=== PATIENT | female | born 1940 | race Caucasian/White ===

== ENCOUNTER 2018-05-13 15:55 | Observation (INO) | payer MEDICARE, OTHER ==
--- NOTE | 2018-05-13 16:42 | EDM.PDOC ---
ED HPI GENERAL MEDICAL PROBLEM - General Chief Complaint: Abdominal Pain Stated Complaint: abdominal pain Time Seen by Provider: 05/13/18 16:30 Source of Information: Reports: Patient History Limitations: Reports: No Limitations - History of Present Illness INITIAL COMMENTS - FREE TEXT/NARRATIVE: Stated during the night with sharp midepigastric pain that would radiate up into her chest. Now has pain across most of her abdomen and then it radiates into the middle of her abdomen. SHe ate chicken sandwich last evening but had no symptoms until during the night. She ate banana this morning and it caused increase in discomfort so she made herself vomit it up. No diarrhea but she did have normal BM earlier today. She denied any fever or chills. Pain is in lower abdomen and then shoots into midepigastric and midsternal. It will come and go. Pain had become much worse this afternoon. Onset: Gradual Duration: Day(s): (1) Location: Reports: Abdomen Quality: Reports: Sharp Abdomen Pain Score (Numeric/FACES): 8 - Related Data Allergies Allergy/AdvReac Type Severity Reaction Status Date / Time regadenoson [From Lexiscan] Allergy Severe Cardiac Verified 05/13/18 16:10 Arrest Home Meds: Home Meds Calcium Carbonate/Vitamin D3 [Calcium 600 + Vit D 400 Tablet] 1 tab PO DAILY [History] Citalopram Hydrobromide [Celexa] 10 mg PO DAILY 11/20/15 [History] Enalapril/Hydrochlorothiazide [Enalapril-HCTZ 10-25 MG] 1 tab PO DAILY 11/20/15 [History] Hydrocodone/Acetaminophen [Hydrocodon-Acetaminophen 5-325] 1 tab PO Q6H PRN [History] Meloxicam 15 mg PO DAILY 11/20/15 [History] Omeprazole 20 mg PO DAILY 11/20/15 [History] Simvastatin [Zocor] 20 mg PO DAILY 11/20/15 [History] traZODone HCl [Trazodone HCl] 25 mg PO BEDTIME 11/20/15 [History] Past Medical History HEENT History: Reports: Impaired Vision Cardiovascular History: Reports: High Cholesterol, Hypertension Gastrointestinal History: Reports: GERD 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: - Past Surgical History Female Surgical History: Reports: Section, Hysterectomy Oncologic Surgical History: Reports: Lumpectomy Social & Family History - Family History Family Medical History: Noncontributory - Tobacco Use Smoking Status *Q: Never Smoker - Caffeine Use Caffeine Use: Reports: Coffee - Recreational Drug Use Recreational Drug Use: No ED ROS GENERAL - Review of Systems Review Of Systems: See Below Constitutional: Denies: Fever, Chills Respiratory: Reports: No Symptoms Cardiovascular: Reports: No Symptoms Endocrine: Reports: No Symptoms GI/Abdominal: Reports: Abdominal Pain, Decreased Appetite, Vomiting. Denies: Constipation, Diarrhea : Reports: No Symptoms Musculoskeletal: Reports: No Symptoms Skin: Reports: No Symptoms Neurological: Reports: No Symptoms Psychiatric: Reports: No Symptoms ED EXAM, GI/ABD - Physical Exam Exam: See Below Exam Limited By: No Limitations General Appearance: Alert, WD/WN, Moderate Distress Ears: Normal External Exam, Normal Canal Nose: Normal Inspection, Normal Mucosa Throat/Mouth: Normal Inspection, Normal Oropharynx, No Airway Compromise Head: Atraumatic, Normocephalic Neck: Normal Inspection, Supple Respiratory/Chest: No Respiratory Distress, Lungs Clear, Normal Breath Sounds Cardiovascular: Regular Rate, Rhythm, No Edema GI/Abdominal Exam: Tender (Tender to palpation to lower abdomen which will radiate to midepigastric area then up into midsternal area.), Abnormal Bowel Sounds (Bowel sounds are present but hypoactive.). No: Guarding, Rigid, Rebound Extremities: Normal Inspection, No Pedal Edema, Normal Capillary Refill Neurological: Alert, Oriented Skin Exam: Warm, Dry, Intact Course - Vital Signs Last Recorded V/S: Last Vital Signs Temp 98.8 F 05/13/18 16:13 Pulse 75 05/13/18 16:13 Resp 20 05/13/18 16:13 BP 155/87 H 05/13/18 16:25 Pulse Ox 98 05/13/18 16:13 - Orders/Labs/Meds Orders: Active Orders 24 hr Category Date Time Status Abdomen Pelvis w Cont [CT] Stat Exams 05/13/18 16:37 Taken Labs: Laboratory Tests 05/13/18 05/13/18 05/13/18 Range/Units 16:25 16:25 16:25 WBC 10.2 H (5.0-10.0) 10^3/uL RBC 4.77 (4.00-5.50) 10^6/uL Hgb 14.9 (12.0-16.0) g/dL Hct 43.9 (37.0-47.0) % MCV 92.0 (82.0-94.0) fL MCH 31.2 (27.0-32.0) pg MCHC 33.9 (33.0-38.0) g/dL RDW Coeff of Ashley 13.9 (11.0-15.0) % Plt Count 341 (150-400) 10^3/uL Neut % (Auto) 76.0 (35-85) % Lymph % (Auto) 16.8 (10-55) % [place] % (Auto) 5.6 (0-16) % Eos % (Auto) 1.2 (0-5) % Baso % (Auto) 0.4 (0-3) % Neut # (Auto) 7.72 H (1.80-7.00) 10^3/uL Lymph # (Auto) 1.71 (1.00-4.80) 10^3/uL [place] # (Auto) 0.57 (0.00-0.80) 10^3/uL Eos # (Auto) 0.12 (0.00-0.45) 10^3/uL Baso # (Auto) 0.04 10^3/uL Sodium 143 (136-145) mEq/L Potassium 4.0 (3.5-5.0) mEq/L Chloride 104 (98-106) mEq/L Carbon Dioxide 28 (21-32) mmol/L BUN 21 H (7-18) mg/dL Creatinine 1.2 H (0.6-1.0) mg/dL Est Cr Clr Drug Dosing 29.63 mL/min Estimated GFR (MDRD) 44 L (>=60) mL/min Glucose 112 H (75-99) mg/dL Calcium 9.5 (8.4-10.1) mg/dL Total Bilirubin 0.8 (0.0-1.0) mg/dL AST 35 (15-37) U/L ALT 35 (12-78) U/L Alkaline Phosphatase 77 (46-116) U/L Lactate Dehydrogenase (100-190) U/L Creatine Kinase (21-215) U/L Troponin I (0.00-0.06) ng/mL C-Reactive Protein 0.5 (0.2-0.8) mg/dL Total Protein 7.4 (6.4-8.2) g/dL Albumin 3.9 (3.4-5.0) g/dL Amylase 34 (25-115) U/L Urine Color Light yellow (YELLOW) Urine Appearance Clear (CLEAR) Urine pH 7.0 (4.5-8.0) Ur Specific [place] 1.010 (1.003-1.020) Urine Protein Negative (NEGATIVE) mg/dL Urine Glucose (UA) Negative (NEGATIVE) mg/dL Urine Ketones Negative (NEGATIVE) mg/dL Urine Occult Blood Negative (NEGATIVE) Urine Nitrite Negative (NEGATIVE) Urine Bilirubin Negative (NEGATIVE) Urine Urobilinogen 0.2 (0.2-1.0) EU/dL Ur Leukocyte Esterase Negative (NEGATIVE) Urine RBC Not seen (0-5) /HPF Urine WBC 0-5 (0-5) /HPF Ur Squamous Epith Cells Occasional H (NOT SEEN) /HPF 05/13/18 Range/Units 16:37 WBC (5.0-10.0) 10^3/uL RBC (4.00-5.50) 10^6/uL Hgb (12.0-16.0) g/dL Hct (37.0-47.0) % MCV (82.0-94.0) fL MCH (27.0-32.0) pg MCHC (33.0-38.0) g/dL RDW Coeff of Ashley (11.0-15.0) % Plt Count (150-400) 10^3/uL Neut % (Auto) (35-85) % Lymph % (Auto) (10-55) % [place] % (Auto) (0-16) % Eos % (Auto) (0-5) % Baso % (Auto) (0-3) % Neut # (Auto) (1.80-7.00) 10^3/uL Lymph # (Auto) (1.00-4.80) 10^3/uL [place] # (Auto) (0.00-0.80) 10^3/uL Eos # (Auto) (0.00-0.45) 10^3/uL Baso # (Auto) 10^3/uL Sodium (136-145) mEq/L Potassium (3.5-5.0) mEq/L Chloride (98-106) mEq/L Carbon Dioxide (21-32) mmol/L BUN (7-18) mg/dL Creatinine (0.6-1.0) mg/dL Est Cr Clr Drug Dosing mL/min Estimated GFR (MDRD) (>=60) mL/min Glucose (75-99) mg/dL Calcium (8.4-10.1) mg/dL Total Bilirubin (0.0-1.0) mg/dL AST (15-37) U/L ALT (12-78) U/L Alkaline Phosphatase (46-116) U/L Lactate Dehydrogenase 226 H (100-190) U/L Creatine Kinase 84 (21-215) U/L Troponin I < 0.017 (0.00-0.06) ng/mL C-Reactive Protein (0.2-0.8) mg/dL Total Protein (6.4-8.2) g/dL Albumin (3.4-5.0) g/dL Amylase (25-115) U/L Urine Color (YELLOW) Urine Appearance (CLEAR) Urine pH (4.5-8.0) Ur Specific [place] (1.003-1.020) Urine Protein (NEGATIVE) mg/dL Urine Glucose (UA) (NEGATIVE) mg/dL Urine Ketones (NEGATIVE) mg/dL Urine Occult Blood (NEGATIVE) Urine Nitrite (NEGATIVE) Urine Bilirubin (NEGATIVE) Urine Urobilinogen (0.2-1.0) EU/dL Ur Leukocyte Esterase (NEGATIVE) Urine RBC (0-5) /HPF Urine WBC (0-5) /HPF Ur Squamous Epith Cells (NOT SEEN) /HPF Meds: Medications Discontinued Medications Generic Name Dose Route Start Last Admin Trade Name Freq PRN Reason Stop Dose Admin Iopamidol 100 ml 05/13/18 16:47 05/13/18 17:14 Isovue-300 (61%) IVPUSH 05/13/18 16:48 100 ml ONETIME ONE Administration - Re-Assessments/Exams Free Text/Narrative Re-Assessment/Exam: 05/13/18 18:[address] report with Radiologist via phone and then report given to pt. She has some distal small bowel dilation with possible early ileus and possible early obstruction and enteritis. Discussed that she will be admitted with IV fluids and NPO to rest bowel. If she begins to vomit then will need to place NG tube. Pt and daughter in law voice understanding. Departure - Departure Time of Disposition: 18:30 Disposition: Refer to Observation Condition: Fair Clinical Impression: Ileus, unspecified - Discharge Information *PRESCRIPTION DRUG MONITORING PROGRAM REVIEWED*: Not Applicable *COPY OF PRESCRIPTION DRUG MONITORING REPORT IN PATIENT JOSE ALBERTO: Not Applicable Instructions: Ileus Forms: ED Department Discharge - Problem List & Annotations (1) Ileus, unspecified SNOMED Code(s): 40554040 Code(s): K56.7 - ILEUS, UNSPECIFIED Status: Acute Priority: High Current Visit: Yes - Problem List Review Problem List Initiated/Reviewed/Updated: Yes - My Orders Last 24 Hours: My Active Orders 05/13/18 16:37 Abdomen Pelvis w Cont [CT] Stat - Assessment/Plan Admission H&P: Please use this note as an admission H&P Last 24 Hours: My Active Orders 05/13/18 16:37 Abdomen Pelvis w Cont [CT] Stat Plan: Will admit with IV hydration and NPO for bowel rest. If pain subsides and she has no vomiting or diarrhea then may be discharged in 1-2 days. If she starts to vomit then would need NG tube.
[2018-05-13] MEDS ORDERED: Iopamidol 612 MG/ML 100 ML Bottle IVPUSH ONE (16:47)
[2018-05-13] MEDS ORDERED: Ondansetron 4 MG/2 ML SDV IV PRN (19:05)
[2018-05-13] MEDS ORDERED: Enoxaparin 30 MG/0.3 ML Syringe SUBCUT SCH (19:05)
[2018-05-13] MEDS ORDERED: HYDROmorphone 1 MG/ML Syringe IVPUSH PRN (19:05)
[2018-05-13] MEDS ORDERED: traZODone 50 MG Tab PO SCH (20:00)
[2018-05-13] MEDS: Sodium Chloride 0.9% 1,000 ML IV SCH (20:10)
[2018-05-13] MEDS: Pantoprazole 40 MG Vial IVPUSH SCH (20:13)
[2018-05-13] MEDS ORDERED: Temazepam 15 MG Cap PO PRN (23:45)
[2018-05-14] MEDS: Sodium Chloride 0.9% 1,000 ML IV SCH ×2 (04:15→11:58)
[2018-05-14] MEDS: Pantoprazole 40 MG Vial IVPUSH SCH (07:38)
[2018-05-14] MEDS ORDERED: Enalapril 5 MG Tab PO SCH (08:00)
[2018-05-14] MEDS ORDERED: [UNRECOGNIZED DRUG - OTHER] PO SCH (08:00)
[2018-05-14] MEDS ORDERED: Hydrochlorothiazide 25 MG Tab PO SCH (08:00)
[2018-05-14] MEDS ORDERED: HYDROCHLOROTHIAZIDE PO SCH ×2 (08:00)
[2018-05-14] MEDS ORDERED: CITALOPRAM 10 MG PO SCH (08:00)
[2018-05-14] MEDS ORDERED: ENALAPRIL PO SCH ×2 (08:00)
[2018-05-14 12:22] VITALS: BP 174/65
[2018-05-14] MEDS ORDERED: Acetaminophen 325 MG Tab PO PRN (12:25)
--- NOTE | 2018-05-14 22:24 | PCM.DCSUM1 ---
Discharge Summary - Hospital Course Free Text/Narrative:: Patient presented to ER with complaints of sharp midepigastric pain that radiated up in to her chest. Has a history of "bowel troubles" and known history of small bowel obstruction. She had felt that the discomfort came from eating a chicken sandwich the night prior. She had a banana yesterday am and vomited as a result. States "made myself vomit though". She denied any diarrhea. Had a BM yesterday. No fever or chills. No noted blood in stools as of late. Was worried as pain seemed to progress. Had labs in ER which were essentially negative. CT scan of the abdomen indicates possible enteritis, ileus with possible early small bowel obstruction. Admitted for IV fluids. Remains NPO. Diagnosis: Stroke: No Modified [place] Scale: No Symptoms at All Modified Last Scale Score: 0 - Discharge Data Discharge Date: 05/14/18 Discharge Disposition: Home, Self-Care 01 Condition: Good - Patient Summary/Data Complications: none Hospital Course: Patient feeling better this am. She is passing flatus. Abdomen sore but less pain. WBC is normal. BMP normal. CRP negative. Abdomen is soft, tender to lower quadrants. BS active. Did advance diet to clear liquids this am. Encouraged ambulation. Had 2 small bowel movements. Advanced to soft diet for lunch and did tolerate well. No nausea/vomiting or increased pain. Will discharge home on bland diet. - Patient Instructions Diet: GI Soft/Low Residue/Low Fiber Activity: As Tolerated - Discharge Plan *PRESCRIPTION DRUG MONITORING PROGRAM REVIEWED*: Not Applicable *COPY OF PRESCRIPTION DRUG MONITORING REPORT IN PATIENT JOSE ALBERTO: Not Applicable Home Medications: Home Meds Calcium Carbonate/Vitamin D3 [Calcium 600-Vit D3 400 Tablet] 1 tab PO DAILY [History] Citalopram Hydrobromide [Celexa] 10 mg PO DAILY 11/20/15 [History] Enalapril/Hydrochlorothiazide [Enalapril-HCTZ 10-25 MG] 1 tab PO DAILY 11/20/15 [History] Hydrocodone/Acetaminophen [Hydrocodon-Acetaminophen 5-325] 1 tab PO Q6H PRN [History] Meloxicam 15 mg PO DAILY 11/20/15 [History] Omeprazole 20 mg PO DAILY 11/20/15 [History] Simvastatin [Zocor] 20 mg PO DAILY 11/20/15 [History] traZODone HCl [Trazodone HCl] 25 mg PO BEDTIME 11/20/15 [History] Oxygen Therapy Mode: Nasal Cannula Patient Handouts: Ileus Forms: ED Department Discharge Referrals: Dylan Morrison MD [Primary Care Provider] - (Follow up with Dr. Morrison in one week) - Discharge Summary/Plan Comment DC Time >30 min.: No Discharge Summary/Plan Comment: Discharge home on bland diet - General Info Date of Service: 05/14/18 Admission Dx/Problem (Free Text: Ileus Functional Status: Reports: Pain Controlled, Tolerating Diet, Ambulating, Urinating - Review of Systems General: Denies: Fever, Weakness, Fatigue HEENT: Reports: No Symptoms Pulmonary: Denies: Shortness of Breath, Cough Cardiovascular: Denies: Chest Pain, Edema, Lightheadedness Gastrointestinal: Reports: Abdominal Pain (abdomen is "sore"). Denies: Nausea, Vomiting Genitourinary: Reports: No Symptoms Musculoskeletal: Reports: No Symptoms Skin: Reports: No Symptoms Neurological: Reports: No Symptoms Psychiatric: Reports: No Symptoms - Patient Data Vitals - Most Recent: Last Vital Signs Temp 99.7 F 05/14/18 12:00 Pulse 76 05/14/18 12:00 Resp 16 05/14/18 12:00 BP 174/65 H 05/14/18 12:00 Pulse Ox 96 05/14/18 12:00 Weight - Most Recent: 133 lb 8 oz I&O - Last 24 hours: Intake & Output 05/14/18 05/14/18 05/14/18 06:59 14:59 22:59 Intake Total 1000 1505 Output Total 200 300 Balance 800 1205 Lab Results - Last 24 hrs: Laboratory Results - last 24 hr 05/14/18 05/14/18 Range/Units 07:15 07:15 WBC 6.5 (5.0-10.0) 10^3/uL RBC 4.01 (4.00-5.50) 10^6/uL Hgb 12.5 (12.0-16.0) g/dL Hct 37.7 (37.0-47.0) % MCV 94.0 (82.0-94.0) fL MCH 31.2 (27.0-32.0) pg MCHC 33.2 (33.0-38.0) g/dL RDW Coeff of Ashley 13.9 (11.0-15.0) % Plt Count 266 (150-400) 10^3/uL Neut % (Auto) 61.7 (35-85) % Lymph % (Auto) 25.8 (10-55) % [place] % (Auto) 8.1 (0-16) % Eos % (Auto) 3.8 (0-5) % Baso % (Auto) 0.6 (0-3) % Neut # (Auto) 4.03 (1.80-7.00) 10^3/uL Lymph # (Auto) 1.69 (1.00-4.80) 10^3/uL [place] # (Auto) 0.53 (0.00-0.80) 10^3/uL Eos # (Auto) 0.25 (0.00-0.45) 10^3/uL Baso # (Auto) 0.04 10^3/uL Sodium 144 (136-145) mEq/L Potassium 4.0 (3.5-5.0) mEq/L Chloride 108 H (98-106) mEq/L Carbon Dioxide 28 (21-32) mmol/L BUN 17 (7-18) mg/dL Creatinine 1.2 H (0.6-1.0) mg/dL Est Cr Clr Drug Dosing 28.20 mL/min Estimated GFR (MDRD) 44 L (>=60) mL/min Glucose 99 (75-99) mg/dL Calcium 8.4 (8.4-10.1) mg/dL C-Reactive Protein 0.8 (0.2-0.8) mg/dL Med Orders - Current: Current Medications Discontinued Medications Acetaminophen (Tylenol) 650 mg PO Q4H PRN PRN Reason: Pain/Fever Last Admin: 05/14/18 12:48 Dose: 650 mg Citalopram Hydrobromide (Celexa) 10 mg PO DAILY [facility] Last Admin: 05/14/18 08:35 Dose: 10 mg Enalapril Maleate (Vasotec) 10 mg PO DAILY [facility] Last Admin: 05/14/18 09:15 Dose: Not Given Enoxaparin Sodium (Lovenox) 30 mg SUBCUT Q24H [facility] Last Admin: 05/13/18 20:19 Dose: 30 mg Hydrochlorothiazide (Hydrochlorothiazide) 25 mg PO DAILY [facility] Last Admin: 05/14/18 09:14 Dose: Not Given Hydromorphone HCl (Dilaudid) 0.25 mg IVPUSH Q2H PRN PRN Reason: Pain (severe 7-10) Sodium Chloride (Normal Saline) 1,000 mls @ 125 mls/hr IV ASDIRECTED [facility] Last Admin: 05/14/18 11:58 Dose: 125 mls/hr Iopamidol (Isovue-300 (61%)) 100 ml IVPUSH ONETIME ONE Stop: 05/13/18 16:48 Last Admin: 05/13/18 17:14 Dose: 100 ml Non-Formulary Medication (Enalapril/Hydrochlorothiazide [Enalapril-Hctz 10-25 Mg ]) 1 tab PO DAILY [facility] Enalapril/Hctz 10/25 (Mg) 1 tab PO DAILY [facility] Last Admin: 05/14/18 08:35 Dose: 1 tab Ondansetron HCl (Zofran) 4 mg IV Q4H PRN PRN Reason: Nausea/Vomiting Pantoprazole Sodium (Protonix Iv) 40 mg IVPUSH Q12H [facility] Last Admin: 05/14/18 07:38 Dose: 40 mg Temazepam (Restoril) 15 mg PO BEDTIME PRN PRN Reason: Sleep Last Admin: 05/13/18 23:53 Dose: 15 mg Trazodone HCl (Trazodone) 25 mg PO BEDTIME [facility] Last Admin: 05/13/18 20:20 Dose: Not Given - Exam General: Reports: Alert, Oriented HEENT: Reports: Mucous Membr. Moist/[place] Neck: Reports: Supple Lungs: Reports: Clear to Auscultation, Normal Respiratory Effort Cardiovascular: Reports: Regular Rate, Regular Rhythm GI/Abdominal Exam: Normal Bowel Sounds, Soft, Tender. No: Guarding Extremities: Normal Inspection, No Pedal Edema Skin: Reports: Warm, Dry Neurological: Reports: No New Focal Deficit
== END 2018-05-14 14:57 | disposition home or self-care (01) ==
LOC: CC.ED 15:55 → CC.MS 18:32 → UNDOADMOB 18:50
PROVIDERS: ADMIT Physician Assistant Medical; ATTEND Family Medicine
DX: K56.7 Ileus, unspecified (principal); K21.9 Gastro-esophageal reflux disease without esophagitis; E78.00 Pure hypercholesterolemia, unspecified; I10 Essential (primary) hypertension; Z79.899 Other long term (current) drug therapy; Z88.8 Allergy status to other drugs, medicaments and biological substances
CPT/HCPCS: 36415; 74177; 80048; 80053; 81001; 82150; 82550; 83615; 84484; 85025; 86140; 93005; 93010; 96361; 96372; 96374; 96376; 99217; 99219; 99285; A9270; C9113; G0378; J1650; J7030; Q9967

== ENCOUNTER 2019-10-30 08:57 | Emergency (ER) | payer MEDICARE, OTHER ==
[2019-10-30 09:01] VITALS: BP 153/70; PULSE 88
--- NOTE | 2019-10-30 09:32 | EDM.PDOC ---
ED HPI GENERAL MEDICAL PROBLEM - General Chief Complaint: General Stated Complaint: pain to L) groin Time Seen by Provider: 10/30/19 09:24 Source of Information: Reports: Patient History Limitations: Reports: No Limitations - History of Present Illness INITIAL COMMENTS - FREE TEXT/NARRATIVE: This patient is a 79 year old female that presents to the ER. Patient reports that she had stent placed in her left groin region on November 20. She reports that started last evening she noticed having a small about marble size nodule that is tender to the left groin. Patient reports she thinks it has been there since her surgery. Denies redness, heat, drainage, open wound, fever, vomiting. 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 Left Groin Pain Score (Numeric/FACES): 2 - Related Data Allergies Allergy/AdvReac Type Severity Reaction Status Date / Time regadenoson [From Lexiscan] Allergy Severe Cardiac Verified 10/30/19 09:01 Arrest levofloxacin Allergy Pain Verified 10/30/19 09:02 Home Meds: Home Meds Calcium Carbonate/Vitamin D3 [Calcium 600-Vit D3 400 Tablet] 1 tab PO DAILY [History] Enalapril/Hydrochlorothiazide [Enalapril-HCTZ 10-25 MG] 1 tab PO DAILY 11/20/15 [History] Hydrocodone/Acetaminophen [Hydrocodone-Acetamin 5-325 mg] 1 tab PO Q6H PRN 11/19 [History] traZODone HCl [Trazodone HCl] 50 mg PO BEDTIME 11/20/15 [History] Celecoxib 200 mg PO DAILY 12/01/18 [History] Cyclobenzaprine HCl 10 mg PO DAILY PRN 12/01/18 [History] atorvaSTATin Calcium [Atorvastatin Calcium] 10 mg PO DAILY 12/01/18 [History] Citalopram [Citalopram HBr] 20 mg PO DAILY 10/30/19 [History] Clopidogrel Bisulfate [Clopidogrel] 75 mg PO DAILY 10/30/19 [History] Past Medical History HEENT History: Reports: Impaired Vision Cardiovascular History: Reports: High Cholesterol, Hypertension, Other (See Below) Other Cardiovascular History: stent to L) leg Gastrointestinal History: Reports: GERD 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: - Past Surgical History Female Surgical History: Reports: Section, Hysterectomy Oncologic Surgical History: Reports: Lumpectomy Social & Family History - Family History Family Medical History: Noncontributory - Tobacco Use Smoking Status *Q: Never Smoker - Caffeine Use Caffeine Use: Reports: Coffee ED ROS GENERAL - Review of Systems Review Of Systems: See Below Constitutional: Reports: No Symptoms, Fever, Chills, Malaise HEENT: Reports: No Symptoms Respiratory: Reports: No Symptoms Cardiovascular: Reports: No Symptoms Endocrine: Reports: No Symptoms GI/Abdominal: Reports: No Symptoms : Reports: No Symptoms Musculoskeletal: Reports: No Symptoms Skin: Reports: Lumps (left groin marble size, tender.) Neurological: Reports: No Symptoms Psychiatric: Reports: No Symptoms Hematologic/Lymphatic: Reports: No Symptoms Immunologic: Reports: No Symptoms ED EXAM, GENERAL - Physical Exam Exam: See Below Exam Limited By: No Limitations General Appearance: Alert, WD/WN, No Apparent Distress Respiratory/Chest: No Respiratory Distress, Lungs Clear, Normal Breath Sounds, No Accessory Muscle Use Cardiovascular: Normal Peripheral Pulses, Regular Rate, Rhythm, No Edema, No Gallop, No JVD, No Murmur, No Rub Peripheral Pulses: 2+: Femoral (L), Femoral (R), Popliteal (L), Popliteal (R), Posterior Tibial (L), Posterior Tibial (R) Extremities: Other (left groin marble size nodule, mildly tender on exam. No redness, no heat, no drainage, no open wound. Hard on exam and no pulsating at site. ). No: Leg Pain, Redness Neurological: Alert, Oriented Psychiatric: Normal Affect, Normal Mood Skin Exam: Ecchymosis (Left groin). No: Erythema Course - Vital Signs Last Recorded V/S: Last Vital Signs Temp 97.1 F 10/30/19 08:58 Pulse 88 10/30/19 08:58 Resp 16 10/30/19 08:58 BP 153/70 H 10/30/19 08:58 Pulse Ox 99 10/30/19 08:58 - Orders/Labs/Meds Labs: Laboratory Tests 10/30/19 Range/Units 09:24 WBC 7.1 (5.0-10.0) 10^3/uL RBC 4.09 (4.00-5.50) 10^6/uL Hgb 13.1 (12.0-16.0) g/dL Hct 38.3 (37.0-47.0) % MCV 93.6 (82.0-94.0) fL MCH 32.0 (27.0-32.0) pg MCHC 34.2 (33.0-38.0) g/dL RDW Coeff of [place] 13.7 (11.0-15.0) % Plt Count 354 (150-400) 10^3/uL Neut % (Auto) 73.6 (35-85) % Lymph % (Auto) 18.8 (10-55) % [place] % (Auto) 5.5 (0-16) % Eos % (Auto) 1.7 (0-5) % Baso % (Auto) 0.4 (0-3) % Neut # (Auto) 5.23 (1.80-7.00) 10^3/uL Lymph # (Auto) 1.34 (1.00-4.80) 10^3/uL [place] # (Auto) 0.39 (0.00-0.80) 10^3/uL Eos # (Auto) 0.12 (0.00-0.45) 10^3/uL Baso # (Auto) 0.03 10^3/uL - Re-Assessments/Exams Free Text/Narrative Re-Assessment/Exam: 10/30/19 09:58 I used a doppler to ensure there was no pulse coming from the hard nodule. The nodule itself is hard and does not have an audbile pulse. However, this nodule is just to the left of the doppler audible pulse femoral artery. I will call the surgeon to discuss. 10/30/19 10:[address] Gilmore, the surgeon. He reports this is more than likely a hematoma. If continues to get bigger or more painful, can followup with him in office Friday. Will discharge patient. Departure - Departure Time of Disposition: 10:41 Disposition: Home, Self-Care 01 Condition: Good Clinical Impression: Hematoma of groin Qualifiers: Encounter type: initial encounter Qualified Code(s): S30.1XXA - Contusion of abdominal wall, initial encounter - Discharge Information *PRESCRIPTION DRUG MONITORING PROGRAM REVIEWED*: Not Applicable *COPY OF PRESCRIPTION DRUG MONITORING REPORT IN PATIENT JOSE ALBERTO: Not Applicable Instructions: Contusion, [id number] Referrals: Dylan Morrison MD [Primary Care Provider] - Forms: ED Department Discharge Additional Instructions: Followup with your surgeon if pain worsens or area becomes bigger in size. May call office Friday for an appointment: [phone] Return to the ER for emergencies such as fever, vomiting, redness, or any other concerns Sepsis Event Note - Evaluation Sepsis Screening Result: No Definite Risk - Focused Exam Vital Signs: Vital Signs Temp Pulse Resp BP Pulse Ox 10/30/19 08:58 97.1 F 88 16 153/70 H 99 Date Exam was Performed: 10/30/19 Time Exam was Performed: 10:39 - Assessment/Plan Plan: PLEASE SEE RN NOTE FOR PFS
== END 2019-10-30 10:45 | disposition home or self-care (01) ==
LOC: CC.ED 08:57
DX: S30.1XXA Contusion of abdominal wall, initial encounter (principal); E78.00 Pure hypercholesterolemia, unspecified; I10 Essential (primary) hypertension; Z79.899 Other long term (current) drug therapy; Z79.02 Long term (current) use of antithrombotics/antiplatelets; X58.XXXA Exposure to other specified factors, initial encounter
CPT/HCPCS: 36415; 85025; 99283

== ENCOUNTER 2022-07-28 14:35 | Emergency (ER) | payer MEDICARE, OTHER ==
[2022-07-28] MEDS: Aspirin 81 MG Tab.Chew PO ONE (14:42)
[2022-07-28] MEDS: cloNIDine 0.1 MG Tab PO ONE (15:04)
[2022-07-28 15:12] LABS: CHLORIDE,CL 101 mEq/L (98-106); SODIUM,NA 140 mEq/L (136-145)
[2022-07-28 15:16] LABS: ESTIMATED GFR 35 mL/min (>=60)
[2022-07-28 15:17] VITALS: PULSE 66
[2022-07-28 15:17] LABS: PTT,PARTIAL THROMBOPLSTIN TIME 24.8 SEC (20.0-30.0)
[2022-07-28] MEDS ORDERED: Sodium Chloride 0.9% 1,000 ML ONE (16:18)
[2022-07-28] MEDS: Sodium Chloride 0.9% 1,000 ML IV ONE (16:20)
[2022-07-28 17:44] VITALS: BP 143/77
== END 2022-07-28 17:40 | disposition home or self-care (01) ==
LOC: CC.ED 14:35
DX: I16.0 Hypertensive urgency (principal); I10 Essential (primary) hypertension; K21.9 Gastro-esophageal reflux disease without esophagitis; M19.90 Unspecified osteoarthritis, unspecified site; Z86.718 Personal history of other venous thrombosis and embolism; Z88.1 Allergy status to other antibiotic agents; Z88.8 Allergy status to other drugs, medicaments and biological substances; Z79.02 Long term (current) use of antithrombotics/antiplatelets; Z79.899 Other long term (current) drug therapy
CPT/HCPCS: 36415; 71046; 80053; 82550; 83615; 83690; 83735; 84484; 85025; 85610; 85730; 93005; 93010; 96360; 99284; 99285-25; A9270-GY; J7030

== ENCOUNTER 2023-07-30 10:15 | Emergency (ER) | payer MEDICARE, OTHER ==
[~2023-07-30 10:15] MED LIST: Ketorolac 30 MG/ML SDV IVPUSH ONE
[2023-07-30 10:30] LABS: BASOPHILS ABSOLUTE AUTO 0.03 10^3/uL (0.00-0.50); BASOPHILS PERCENT AUTO 0.3 % (0-1); EOSINOPHILS ABSOLUTE AUTO 0.01 10^3/uL (0.00-1.50); EOSINOPHILS PERCENT AUTO 0.1 % (0-6); HEMATOCRIT 33.9 % (37.0-47.0); HEMOGLOBIN 11.3 g/dL (12.0-16.0); IMMATURE GRAN ABSOLUTE AUTO 0.01 10^3/uL (0.00-0.49); IMMATURE GRAN PERCENT AUTO 0.1 % (0.0-4.9); LYMPHOCYTES ABSOLUTE AUTO 0.48 10^3/uL (0.60-5.00); LYMPHOCYTES PERCENT AUTO 4.6 % (24-44); MEAN CORPUSCULAR HEMOGLOBIN 31.3 pg (27.0-32.0); MEAN CORPUSCULAR HGB CONC 33.3 g/dL (32.0-36.0); MEAN CORPUSCULAR VOLUME 93.9 fL (83.0-97.0); MONOCYTES ABSOLUTE AUTO 0.74 10^3/uL (0.00-1.50); MONOCYTES PERCENT AUTO 7.1 % (0-10); NEUTROPHILS ABSOLUTE AUTO 9.14 x10^3/uL (1.80-8.00); NEUTROPHILS PERCENT AUTO 87.8 % (41-71); PLATELET COUNT,PLT 228 10^3/uL (150-400); RED BLOOD CELL COUNT 3.61 x10^6/uL (4.00-5.50); WHITE BLOOD CELL COUNT,WBC 10.4 10^3/uL (4.0-11.0)
[2023-07-30 10:46] LABS: BILIRUBIN TOTAL 0.7 mg/dL (0.0-1.0); CALCIUM 8.2 mg/dL (8.4-10.1); CREATININE 1.3 mg/dL (0.6-1.0); EST CRCL DRUG DOSING (CG) 23.96 mL/min; MAGNESIUM 1.8 mg/dL (1.8-2.4); POTASSIUM,K 3.6 mEq/L (3.5-5.0); PROTEIN TOTAL,TP 5.8 g/dL (6.4-8.2)
[2023-07-30] MEDS: Acetaminophen 325 MG Tab PO ONE (10:55)
[2023-07-30] MEDS: Sodium Chloride 0.9% 500 ML IV SCH (11:09)
[2023-07-30 11:13] LABS: APPEARANCE,URINE CLEAR (CLEAR); COLOR,URINE YELLOW (YELLOW); PROTEIN,URINE NEGATIVE (NEGATIVE)
[2023-07-30 11:14] LABS: BILIRUBIN,URINE NEGATIVE (NEGATIVE); GLUCOSE,URINE NEGATIVE (NEGATIVE); KETONES,URINE 15 mg/dL (NEGATIVE); OCCULT BLOOD,URINE NEGATIVE (NEGATIVE)
[2023-07-30] MEDS: Iopamidol 755 Mg/ML 100 ML Bottle IVPUSH ONE (11:16)
[2023-07-30 11:17] VITALS: BP 122/62; PULSE 80
[2023-07-30 11:18] LABS: UROBILINOGEN,URINE 0.2 EU/dL (0.2-1.0)
[2023-07-30 11:19] LABS: BACTERIA,URINE NOT SEEN /HPF (NOT SEEN); EPITHELIAL CELLS,URINE OCCASIONAL /HPF (NOT SEEN); LEUKOCYTE ESTERASE,URINE NEGATIVE (NEGATIVE); MUCUS,URINE NOT SEEN /HPF (NOT SEEN); NITRITE,URINE NEGATIVE (NEGATIVE); RBC,URINE NOT SEEN /HPF (0-5); WBC,URINE NOT SEEN /HPF (0-5)
[2023-07-30 11:39] LABS: CORONAVIRUS COVID-19 NAA NEGATIVE (NEGATIVE); INFLUENZA A NAA NEGATIVE (NEGATIVE); INFLUENZA B NAA NEGATIVE (NEGATIVE); RESPIRATORY SYNCYTIAL VIR NAA NEGATIVE (NEGATIVE)
[2023-07-30] MEDS ORDERED: Ketorolac 30 MG/ML SDV IVPUSH ONE (11:51)
== END 2023-07-30 14:00 | disposition home or self-care (01) ==
LOC: CC.ED 10:15
DX: J18.9 Pneumonia, unspecified organism (principal); I10 Essential (primary) hypertension; K21.9 Gastro-esophageal reflux disease without esophagitis; M19.90 Unspecified osteoarthritis, unspecified site; E78.00 Pure hypercholesterolemia, unspecified; Z90.710 Acquired absence of both cervix and uterus; Z79.82 Long term (current) use of aspirin; Z79.899 Other long term (current) drug therapy; Z88.8 Allergy status to other drugs, medicaments and biological substances
CPT/HCPCS: 0241U; 36415; 70450; 70496; 70498; 71045; 71250; 80053; 81001; 83605; 83735; 84484; 85025; 87040; 93005; 96360; 99285; A9270; J7040; Q9967; 93010; 99284

== ENCOUNTER 2023-09-25 13:54 | Emergency (ER) | payer MEDICARE, OTHER ==
[2023-09-25 14:30] VITALS: BP 145/69; PULSE 75
[2023-09-25] MEDS: Ketorolac 30 MG/ML SDV IM ONE (14:39)
== END 2023-09-25 15:50 | disposition home or self-care (01) ==
LOC: CC.ED 13:54
DX: M77.8 Other enthesopathies, not elsewhere classified (principal); I10 Essential (primary) hypertension; E78.00 Pure hypercholesterolemia, unspecified; K21.9 Gastro-esophageal reflux disease without esophagitis; Z91.041 Radiographic dye allergy status; Z88.1 Allergy status to other antibiotic agents; Z79.02 Long term (current) use of antithrombotics/antiplatelets; Z79.899 Other long term (current) drug therapy; Z79.82 Long term (current) use of aspirin; Z79.51 Long term (current) use of inhaled steroids; Z90.710 Acquired absence of both cervix and uterus
CPT/HCPCS: 73110-RT; 96372; 99283; 99284; J1885

== ENCOUNTER → 2024-02-13 | Day surgery (SDC) | payer MEDICARE, OTHER ==
[~2024-02-13] MED LIST changes: -Ketorolac 30 MG/ML SDV IVPUSH ONE; +Lactated Ringers 1,000 ML IV SCH; +Propofol 200 MG/20 ML SDV ONE; +fentaNYL 50 MCG/ML SDV ONE
[2024-02-13] MEDS: Lactated Ringers 1,000 ML IV SCH (07:26)
[2024-02-13 09:33] VITALS: BP 148/65; PULSE 63
== END ==
LOC: CC.SDS 06:54
PROVIDERS: ATTEND Family Medicine
DX: Z12.11 Encounter for screening for malignant neoplasm of colon (principal); K63.89 Other specified diseases of intestine; K57.30 Diverticulosis of large intestine without perforation or abscess without bleeding; R19.5 Other fecal abnormalities; I10 Essential (primary) hypertension; M06.9 Rheumatoid arthritis, unspecified; E78.00 Pure hypercholesterolemia, unspecified; Z88.8 Allergy status to other drugs, medicaments and biological substances; Z88.1 Allergy status to other antibiotic agents; Z79.899 Other long term (current) drug therapy
CPT/HCPCS: 00811; 88305; 99100; J2704; J3010; J7120

== ENCOUNTER 2024-11-28 16:23 | Emergency (ER) | payer MEDICARE, OTHER ==
[2024-11-28] MEDS: Alum Hydrox/Mag Hydrox/Simeth 30 ML, Lidocaine 2% 15 ML PO ONE (16:32)
[2024-11-28 16:33] LABS: BASOPHILS ABSOLUTE AUTO 0.04 10^3/uL (0.00-0.50); BASOPHILS PERCENT AUTO 0.5 % (0-1); EOSINOPHILS ABSOLUTE AUTO 0.02 10^3/uL (0.00-1.50); EOSINOPHILS PERCENT AUTO 0.2 % (0-6); HEMATOCRIT 37.8 % (37.0-47.0); HEMOGLOBIN 12.6 g/dL (12.0-16.0); IMMATURE GRAN ABSOLUTE AUTO 0.03 10^3/uL (0.00-0.49); IMMATURE GRAN PERCENT AUTO 0.4 % (0.0-4.9); LYMPHOCYTES PERCENT AUTO 14.3 % (24-44); MEAN CORPUSCULAR HEMOGLOBIN 31.7 pg (27.0-32.0); MEAN CORPUSCULAR HGB CONC 33.3 g/dL (32.0-36.0); MEAN CORPUSCULAR VOLUME 95.2 fL (83.0-97.0); MONOCYTES ABSOLUTE AUTO 0.54 10^3/uL (0.00-1.50); MONOCYTES PERCENT AUTO 6.4 % (0-10); NEUTROPHILS ABSOLUTE AUTO 6.58 x10^3/uL (1.80-8.00); NEUTROPHILS PERCENT AUTO 78.2 % (41-71); PLATELET COUNT,PLT 345 10^3/uL (150-400); RED BLOOD CELL COUNT 3.97 x10^6/uL (4.00-5.50); WHITE BLOOD CELL COUNT,WBC 8.4 10^3/uL (4.0-11.0)
[2024-11-28 16:49] LABS: ALANINE AMINOTRANSFERASE,ALT 50 U/L (12-78); ALBUMIN 3.7 g/dL (3.4-5.0); ALKALINE PHOSPHATASE 72 U/L (46-116); ASPARTATE AMNIOTRANSFERASE,AST 72 U/L (15-37); BILIRUBIN TOTAL 0.7 mg/dL (0.0-1.0); BLOOD UREA NITROGEN,BUN 23 mg/dL (7-18); C-REACTIVE PROTEIN < 0.50 mg/dL (<=0.50); CALCIUM 8.5 mg/dL (8.4-10.1); CARBON DIOXIDE,CO2 25 mmol/L (21-32); CHLORIDE,CL 99 mEq/L (98-106); CREATININE 1.2 mg/dL (0.6-1.0); ESTIMATED GFR 45 mL/min (>=60); GLUCOSE RANDOM 132 mg/dL (75-99); LIPASE 101 U/L (16-77); POTASSIUM,K 3.7 mEq/L (3.5-5.0); PROTEIN TOTAL,TP 6.8 g/dL (6.4-8.2); SODIUM,NA 134 mEq/L (136-145)
[2024-11-28] MEDS: Iopamidol 755 Mg/ML 100 ML Bottle IVPUSH ONE (17:28)
[2024-11-28 20:03] VITALS: BP 139/78; PULSE 76
== END 2024-11-28 19:05 | disposition home or self-care (01) ==
LOC: CC.ED 16:23
DX: K82.8 Other specified diseases of gallbladder (principal); I10 Essential (primary) hypertension; E78.00 Pure hypercholesterolemia, unspecified; K21.9 Gastro-esophageal reflux disease without esophagitis; Z90.710 Acquired absence of both cervix and uterus; Z88.8 Allergy status to other drugs, medicaments and biological substances; Z79.899 Other long term (current) drug therapy
CPT/HCPCS: 36415; 71046; 74177; 80053; 83690; 84484; 85025; 86140; 93005; 93010; 99284; 99285; A9270; Q9967

== ENCOUNTER 2025-02-19 08:47 | Emergency (ER) | payer MEDICARE, OTHER ==
[2025-02-19] MEDS ORDERED: Sodium Chloride 0.9% 10 ML Syringe FLUSH PRN (09:07)
[2025-02-19 09:18] VITALS: BP 147/89; PULSE 79
[2025-02-19 09:20] LABS: BASOPHILS ABSOLUTE AUTO 0.08 10^3/uL (0.00-0.50); BASOPHILS PERCENT AUTO 0.8 % (0-1); EOSINOPHILS ABSOLUTE AUTO 0.09 10^3/uL (0.00-1.50); EOSINOPHILS PERCENT AUTO 0.9 % (0-6); IMMATURE GRAN ABSOLUTE AUTO 0.04 10^3/uL (0.00-0.49); IMMATURE GRAN PERCENT AUTO 0.4 % (0.0-4.9); LYMPHOCYTES ABSOLUTE AUTO 1.78 10^3/uL (0.60-5.00); LYMPHOCYTES PERCENT AUTO 18.7 % (24-44); MONOCYTES ABSOLUTE AUTO 0.77 10^3/uL (0.00-1.50); MONOCYTES PERCENT AUTO 8.1 % (0-10); NEUTROPHILS ABSOLUTE AUTO 6.77 x10^3/uL (1.80-8.00); NEUTROPHILS PERCENT AUTO 71.1 % (41-71); PLATELET COUNT,PLT 328 10^3/uL (150-400); RED BLOOD CELL COUNT 4.08 x10^6/uL (4.00-5.50); WHITE BLOOD CELL COUNT,WBC 9.5 10^3/uL (4.0-11.0)
[2025-02-19 09:35] LABS: ALANINE AMINOTRANSFERASE,ALT 18 U/L (12-78); ASPARTATE AMNIOTRANSFERASE,AST 15 U/L (15-37); BILIRUBIN TOTAL 0.6 mg/dL (0.0-1.0); BLOOD UREA NITROGEN,BUN 19 mg/dL (7-18); CARBON DIOXIDE,CO2 31 mmol/L (21-32); CHLORIDE,CL 96 mEq/L (98-106); CREATININE 1.2 mg/dL (0.6-1.0); EST CRCL DRUG DOSING (CG) 25.51 mL/min; ESTIMATED GFR 45 mL/min (>=60); GLUCOSE RANDOM 91 mg/dL (75-99); POTASSIUM,K 3.5 mEq/L (3.5-5.0); PROTEIN TOTAL,TP 6.6 g/dL (6.4-8.2); SODIUM,NA 135 mEq/L (136-145)
[2025-02-19] MEDS: Iopamidol 755 Mg/ML 100 ML Bottle IVPUSH ONE (10:27)
[2025-02-19 10:38] LABS: APPEARANCE,URINE CLEAR (CLEAR); GLUCOSE,URINE NEGATIVE (NEGATIVE); OCCULT BLOOD,URINE TRACE-INTACT (NEGATIVE)
[2025-02-19 10:45] LABS: SQUAMOUS EPITHELIAL CELLS,UR FEW /HPF (NOT SEEN)
== END 2025-02-19 12:37 | disposition home or self-care (01) ==
LOC: CC.ED 08:47
DX: K52.9 Noninfective gastroenteritis and colitis, unspecified (principal); E78.00 Pure hypercholesterolemia, unspecified; I10 Essential (primary) hypertension; K21.9 Gastro-esophageal reflux disease without esophagitis; Z88.1 Allergy status to other antibiotic agents; Z91.041 Radiographic dye allergy status; Z79.899 Other long term (current) drug therapy
CPT/HCPCS: 36415; 74177; 80053; 81001; 82272; 83690; 83735; 85025; 86140; 96360; 96361; 99284-25; J7040; Q9967